=== PATIENT | male | born 1975 | race Caucasian/White ===

== ENCOUNTER 2019-07-10 06:00 | Outpatient (RCR) | payer MEDICAID, SELFPAY | END 2019-08-09 23:59 | disposition home or self-care (01) | LOC: WPT 06:00 | PROVIDERS: Family Provider Family Medicine; PCP Family Medicine; Visit Provider Licensed Practical Nurse | DX: M54.2 Cervicalgia (principal) ==

== ENCOUNTER → 2019-09-12 14:03 | Outpatient (BNVA) | payer MEDICAID, SELFPAY | PROVIDERS: Family Provider Family Medicine; PCP Family Medicine; Referring Provider Family Medicine; Visit Provider Specialist | DX: G56.00 Carpal tunnel syndrome, unspecified upper limb (principal) | CPT/HCPCS: 73110 ==

== ENCOUNTER 2019-09-17 07:33 | Day surgery (SDC) | payer MEDICAID, SELFPAY ==
[2019-09-16 14:04] VITALS: BMI 24.7
[2019-09-17 07:47] VITALS: BP 152/98; PULSE 76; RESP 18; TEMP 36.7; O2SAT 100
--- NOTE | 2019-09-17 08:11 | W.PM.OPSUD ---
Surgery/Procedure H&P Update DATE OF PROCEDURE: September 17, 2019 DATE H&P PERFORMED: 09/12/19 H&P UPDATE INFORMATION: I have reviewed H&P completed within last 30 days, No changes to prior documentation and H&P is in [facility] EMR on date indicated PREOP DIAGNOSIS: Right carpal tunnel syndrome PLANNED PROCEDURE: Operation Date: 09/17/19 09:10 Proposed Procedures p Carpal Tunnel Release [id number] G56.01(Right) - Evelyn Felix MD
--- NOTE | 2019-09-17 08:16 | P.ANESASSM_ITS ---
Pre-Anesthetic Assessment Pre-Anesthetic Assessment: Height/Weight: Height 1.91 m Weight 89.811 kg Temp Pulse Resp BP Pulse Ox 98.1 F 76 18 152/98 100 09/17/19 07:47 09/17/19 07:47 09/17/19 07:47 09/17/19 07:47 09/17/19 07:47 Preop Diagnosis: Right carpal tunnel syndrome Proposed Procedure: Operation Date: 09/17/19 09:10 Proposed Procedures p Carpal Tunnel Release [id number] G56.01(Right) - Evelyn Felix MD Familial anesthetic complications: None Was Beta Markell taken within 24 mira rs: N/A Last intake: Intake No meds this morning (stopped suboxone on monday) Last Liquid Date 09/16/19 Last Liquid Time 22:30 Last Solid Date 09/16/19 Last Solid Time 22:30 Social: Social History: Tobacco and No alcohol Packs per day: 1 ppd Exam: Pre-Anes Outpt Exam: alert, oriented x 3, clear to auscultation bilaterally and regular rate & rhythm Airway: Cervical ROM: WNL MP: 3 Dentition: Partials Pulmonary: Pulmonary: None reported CV/HEM: CV/HEM: None reported : : None reported Hepatic: Hepatic: None reported GI: GI: None reported Metabolic: Metabolic: None reported Musc/skel: Musc/skel: Lower Back Pain Comments: On suboxone to get off pain medicine for back pain (slipped cervical discs as well) Neuropsych: Neuropsych: Neuropathy Anesthetic Plan: ASA status: 2 Anesthesia: MAC Risk of > 500 ml blood loss (7ml/kg in children): No PFSH Anesthesia PFSH: Social History (Updated 09/16/19 @ 12:21 by Merry Amezquita LPN) Smoking and tobacco status: current every day smoker Alcohol intake: current Lives independently: Yes Household members: spouse Marital status: Current occupational status: disabled History of recent travel: No Data Anesthesia Cardiac Studies: No Data to Display
[2019-09-17] MEDS: sodium chloride 0.9% 1,000 ML 30 ML IV (08:30)
[2019-09-17 08:37] VITALS: BP 142/81; PULSE 67; RESP 18; TEMP 36.6; O2SAT 100
[2019-09-17 09:59] VITALS: BP 140/86; PULSE 68; RESP 16; TEMP 36.4; O2SAT 100
--- NOTE | 2019-09-17 10:03 | P.OP_ITS ---
Operative Report Date of procedure: September 17, 2019 Pre-op Diagnosis: Right carpal tunnel syndrome Post-op diagnosis: same Post-op Findings: COmpression across the median nerve Procedure Done: Right carpal tunnel release Specimens removed/disposition: None Pathology: none sent Surgeon: Evelyn Felix Zigzag Elastic Attacher: None Anesthesia: Other ([place] Block with MAC) Estimated blood loss (mL): 3 Tourniquet time (min): 38 IV fluids (mL): 300 Urine output (mL): 0 Complications: None Condition: stable Disposition: same day Brief History: This 44-year-old gentleman presented with complaints of numbness in the hand consistent with carpal tunnel syndrome. After discussion, he wished to proceed with right carpal tunnel release. Risks and complications were discussed with him. Consents were signed preoperatively. Procedure: The patient was brought to the operating theater. The patient had a Artemio block with MAC. The tourniquet was elevated to 280 mmHg for a total tourniquet time of 38 minutes. The patient was also given Ancef 2 g preoperatively. The arm was then prepped and draped with DuraPrep in usual fashion with the arm draped free. A surgical pause was performed. At the time, the surgical pause, we confirmed the site and side of surgery. We also confirmed the patient's identity, appropriate and timely administration of preoperative antibiotics and preoperative surgical markings. An incision was then made along the thenar crease. The incision crossed the wrist joint in a curvilinear fashion. Dissection continued through skin and soft tissues using a scalpel. The palmaris longus was identified along with the transverse carpal ligament. Each of these was released carefully to avoid injury to the median nerve. We were able to dissect gently into the carpal canal which was noted to be quite tight with significant compression across the median nerve. The nerve was visualized and was a slight hourglass shape. The canal was subsequently palpated to assure there was no bony encroachment or further soft tissue impingement upon the canal. There was a quite thickened fibrous tissue within the canal, and this was opened longitudinally as well. The canal was then palpated distally and proximally to assure that my small finger was passed easily without impingement. Finding this to be so, attention was directed to closure. The wound was irrigated with ropivacaine plain. It was then closed with 3-0 nylon in an interrupted mattress fashion. Sterile dressing was then placed consisting of Xeroform gauze, fluffed fluffs, sterile soft roll, a volar splint, and an Segun wrap. The tourniquet was released after 38 minutes. There were no complications. There were no specimens. The procedure was well tolerated. Plan is the patient will be discharged home.
== END 2019-09-17 10:33 | disposition home or self-care (01) ==
PROVIDERS: Family Provider Family Medicine; PCP Family Medicine; Visit Provider Specialist
PROC: (CPT 64721; principal; 2019-09-17 09:10)
DX: G56.01 Carpal tunnel syndrome, right upper limb (principal); F17.210 Nicotine dependence, cigarettes, uncomplicated
CPT/HCPCS: 64721; 12345; J0690; J2001; J2704; J3010; J3490; J7030

== ENCOUNTER → 2019-10-22 13:22 | Outpatient (BNVA) | payer MEDICAID, SELFPAY | PROVIDERS: Family Provider Family Medicine; PCP Family Medicine; Referring Provider Specialist; Visit Provider Anesthesiology Pain Medicine | DX: M54.12 Radiculopathy, cervical region (principal); M47.812 Spondylosis without myelopathy or radiculopathy, cervical region; F17.210 Nicotine dependence, cigarettes, uncomplicated; Z79.891 Long term (current) use of opiate analgesic | CPT/HCPCS: 99204; 99205 ==

== ENCOUNTER → 2020-02-13 14:52 | Outpatient (BNVA) | payer MEDICAID, SELFPAY | PROVIDERS: Family Provider Family Medicine; PCP Family Medicine; Visit Provider Internal Medicine Rheumatology | DX: M05.79 Rheumatoid arthritis with rheumatoid factor of multiple sites without organ or systems involvement (principal); Z79.899 Other long term (current) drug therapy; Z11.59 Encounter for screening for other viral diseases; Z11.1 Encounter for screening for respiratory tuberculosis; R76.8 Other specified abnormal immunological findings in serum; G56.03 Carpal tunnel syndrome, bilateral upper limbs | CPT/HCPCS: 36415; 80076; 82306; 82565; 84550; 85025; 85651; 86140; 86480; 86704; 86803; 87340; 99204 ==

== ENCOUNTER → 2020-02-18 11:50 | Outpatient (BNVA) | payer MEDICAID, SELFPAY | PROVIDERS: Family Provider Family Medicine; PCP Family Medicine; Visit Provider Internal Medicine | DX: Z20.828 Contact with and (suspected) exposure to other viral communicable diseases (principal); G56.02 Carpal tunnel syndrome, left upper limb | CPT/HCPCS: 87635 ==

== ENCOUNTER 2020-02-21 07:45 | Day surgery (SDC) | payer MEDICAID, SELFPAY ==
[2020-02-20 15:13] VITALS: BMI 23.7
[2020-02-21 07:55] VITALS: BP 136/90; PULSE 60; RESP 18; TEMP 36.6; O2SAT 100
--- NOTE | 2020-02-21 08:06 | P.ANESASSM_ITS ---
Pre-Anesthetic Assessment Pre-Anesthetic Assessment: Height/Weight: Height 1.91 m Weight 86.183 kg Temp Pulse Resp BP Pulse Ox 97.8 F 60 18 136/90 100 02/21/20 07:55 02/21/20 07:55 02/21/20 07:55 02/21/20 07:55 02/21/20 07:55 Preop Diagnosis: Left carpal tunnel syndrome Proposed Procedure: Operation Date: 02/21/20 09:30 Proposed Procedures p Carpal Tunnel Release [id number] G56.02(Left) - Evelyn Felix MD Familial anesthetic complications: None Was Beta Markell taken within 24 hours: N/A Last intake: Intake Last Liquid Date 02/20/20 Last Liquid Time 20:00 Last Solid Date 02/20/20 Last Solid Time 20:00 Social: Social History: Tobacco Exam: Pre-Anes Outpt Exam: alert, oriented x 3, clear to auscultation bilaterally and regular rate & rhythm Airway: Cervical ROM: WNL MP: 3 Dentition: Partials and Other (missing) Pulmonary: Pulmonary: None reported CV/HEM: CV/HEM: None reported GI: GI: GERD Musc/skel: Musc/skel: Lower Back Pain Neuropsych: Neuropsych: None reported Anesthetic Plan: ASA status: 1 Anesthesia: MAC and Regional (specify below) Risk of > 500 ml blood loss (7ml/kg in children): No PFSH Anesthesia 2 PFSH: Medical History (Updated 02/13/20 @ 17:55 by Javier Peterson MD) Cervical disc disorder with myelopathy of mid-cervical region Chronic neck pain High risk medication use 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 Felix). History of facial surgery History of lumbar fusion Hx of appendectomy Hx of cholecystectomy Family History (Updated 02/13/20 @ 16:00 by Flores Mckinney LPN) Other Cancer Rheumatoid arthritis Denies family history of Diabetes Lupus Chronic kidney disease (CKD) Hypertension Social History Smoking and tobacco status: current every day smoker Alcohol intake: current Lives independently: Yes Household members: spouse Marital status: Current occupational status: disabled History of recent travel: No Data Anesthesia Cardiac Studies: No Data to Display
[2020-02-21] MEDS: sodium chloride 0.9% 1,000 ML 30 ML IV (08:35)
--- NOTE | 2020-02-21 09:08 | P.HPUD_ITS ---
Surgery/Procedure H&P Update DATE OF PROCEDURE: February 21, 2020 DATE H&P PERFORMED: 02/18/20 H&P UPDATE INFORMATION: I have reviewed H&P completed within last 30 days, I have examined patient prior to procedure, No changes to prior documentation and H&P is in [facility] [place] EMR on date indicated PREOP DIAGNOSIS: Left carpal tunnel syndrome PLANNED PROCEDURE: Operation Date: 02/21/20 09:30 Proposed Procedures p Carpal Tunnel Release [id number] G56.02(Left) - Evelyn Felix MD Related Problem List Diagnoses (1) Carpal tunnel syndrome, left:
[2020-02-21 10:04] VITALS: BP 130/92; PULSE 58; RESP 18; TEMP 36.6; O2SAT 100
--- NOTE | 2020-02-21 10:25 | P.OP_ITS ---
Operative Report Date of procedure: February 21, 2020 Pre-op Diagnosis: Left carpal tunnel syndrome Post-op diagnosis: same Procedure Done: Left carpal tunnel release Pathology: none sent Surgeon: Evelyn Felix Dining Room Attendant Cafeteria: None Anesthesia: MAC (With [place] block) Estimated blood loss (mL): 5 Tourniquet time (min): 31 IV fluids (mL): 500 Urine output (mL): 0 Urine output: No Meeks Complications: None Findings: Significant compression across the median nerve Condition: stable Disposition: same day Brief History: This 44-year-old gentleman presented with complaints consistent with carpal tunnel syndrome. He has previously undergone right carpal tunnel release successfully. He wished to proceed with operative intervention. Risks and complications were again discussed with him. Consents were signed preoperatively. Procedure: The patient was brought to the operating theater. The patient had a [place] block with MAC. The tourniquet was elevated to 250 mmHg for a total tourniquet time of 31 minutes. The patient was also given Ancef 2 g preoperatively. The arm was then prepped and draped with DuraPrep in usual fashion with the arm draped free. A surgical pause was performed. At the time, the surgical pause, we confirmed the site and side of surgery. We also confirmed the patient's identity, appropriate and timely administration of preoperative antibiotics and preoperative surgical markings. An incision was then made along the thenar crease. The incision crossed the wrist joint in a curvilinear fashion. Dissection continued through skin and soft tissues using a scalpel. The palmaris longus was identified along with the transverse carpal ligament. Each of these was released carefully to avoid injury to the median nerve. We were able to dissect gently into the carpal canal which was noted to be quite tight with significant compression across the median nerve. The nerve was visualized and was an hourglass shape. The canal was subsequently palpated to assure there was no bony encroachment upon the canal. There was a quite thickened fibrous tissue within the canal, and this was opened longitudinally as well. The canal was then palpated distally and proximally to assure that my small finger was passed easily without impingement. Finding this to be so, attention was directed to closure. The wound was irrigated with ropivacaine plain. It was then closed with 3-0 nylon in an interrupted mattress fashion. Sterile dressing was then placed consisting of Xeroform gauze, fluffed fluffs, sterile soft roll, a volar splint, and an Segun wrap. The tourniquet was released after 31 minutes. There were no complications. There were no specimens. The procedure was well tolerated. Plan is the patient will be discharged home. Associated Problem List Diagnoses (1) Carpal tunnel syndrome, left:
[2020-02-21 10:32] VITALS: BP 122/97; PULSE 55; RESP 18; O2SAT 97
--- NOTE | 2020-02-21 13:49 | ANE.PACU2 ---
Inpatient post-anesthesia follow up: Airway intact: Yes Vital signs: Temperature 97.8 F Pulse Rate 55 Respiratory Rate 18 Blood Pressure 122/97 Pulse Oximetry 97 Oxygen Delivery Me thod Room Air Oxygen Flow Rate Fraction of Inspir ed Oxygen Hydration adequate: Yes Nausea and vomiting: No Pain level: 1 Mental status: Baseline
== END 2020-02-21 10:40 | disposition home or self-care (01) ==
PROVIDERS: PCP Family Medicine; Visit Provider Specialist
PROC: (CPT 64721; principal; 2020-02-21 09:30)
DX: G56.02 Carpal tunnel syndrome, left upper limb (principal); K21.9 Gastro-esophageal reflux disease without esophagitis; M05.79 Rheumatoid arthritis with rheumatoid factor of multiple sites without organ or systems involvement; Z79.891 Long term (current) use of opiate analgesic; F17.210 Nicotine dependence, cigarettes, uncomplicated
CPT/HCPCS: 64721; 12345; J0131; J0690; J2704; J3490; J7030

== ENCOUNTER 2020-03-25 13:29 | Outpatient (CLI) | payer MEDICAID, SELFPAY ==
--- NOTE | 2020-03-25 13:32 | XR_ITS ---
WS: [id number] FOOT LEFT TECHNIQUE: 3 views of the left foot CLINICAL INFORMATION: inflammatory arthritis COMPARISON: None. FINDINGS: No evidence of acute fracture or dislocation. Normal tarsal metatarsal alignment. Normal calcaneus. N ormal visualized talar dome. No acute findings. Plantar calcaneal spurring. Achilles enthesophyte. XR/XR foot LT min 3V* [id number] IMPRESSION: Normal left foot.
--- NOTE | 2020-03-25 13:32 | XR_ITS ---
WS: [id number] HAND LEFT TECHNIQUE: 3 views of the left hand CLINICAL INFORMATION: inflammatory arthritis COMPARISON: None. FINDINGS: Normal metacarpals. Normal MCP joint. Metacarpal heads are normal in appearance. Normal PIP and DIP j oints. No evidence of acute fracture or dislocation. Radiocarpal joint: Normal. Carpal bones: Normal. XR/XR hand LT min 3V* [id number] IMPRESSION: Normal left hand.
--- NOTE | 2020-03-25 13:32 | XR_ITS ---
WS: [id number] HAND RIGHT TECHNIQUE: 3 views of the right hand CLINICAL INFORMATION: inflammatory arthritis COMPARISON: None. FINDINGS: Normal metacarpals. Normal MCP joint. Metacarpal heads are normal in appearance. Normal PIP and DIP j oints. No evidence of acute fracture or dislocation. Radiocarpal joint: Normal. Carpal bones: Normal. XR/XR hand RT min 3V* [id number] IMPRESSION: Normal right hand.
--- NOTE | 2020-03-25 13:32 | XR_ITS ---
WS: [id number] PROCEDURE: XR chest 2V* [id number] CLINICAL INFORMATION: inflammatory arthritis COMPARISON: 3 FINDINGS: Heart: Normal cardiac silhouette. Lungs: Lungs are clear. No consolidation or pleural fluid. Bones: Normal visualized bony structures. XR/XR chest 2V* [id number] IMPRESSION: Normal chest
--- NOTE | 2020-03-25 13:32 | XR_ITS ---
WS: [id number] FOOT RIGHT TECHNIQUE: 3 views of the right foot CLINICAL INFORMATION: inflammatory arthritis COMPARISON: None. FINDINGS: No evidence of acute fracture or dislocation. Normal tarsal metatarsal alignment. Normal calcaneus. N ormal visualized talar dome. Tiny plantar calcaneal spur. Small Achilles enthesophyte. XR/XR foot RT min 3V* [id number] IMPRESSION: Normal right foot.
== END 2020-03-25 13:30 | disposition home or self-care (01) ==
LOC: RADWPI 13:32
PROVIDERS: PCP Family Medicine; Visit Provider Internal Medicine Rheumatology
DX: M19.90 Unspecified osteoarthritis, unspecified site (principal); M05.79 Rheumatoid arthritis with rheumatoid factor of multiple sites without organ or systems involvement; Z79.899 Other long term (current) drug therapy; R76.8 Other specified abnormal immunological findings in serum; G56.03 Carpal tunnel syndrome, bilateral upper limbs; F17.210 Nicotine dependence, cigarettes, uncomplicated; Z79.52 Long term (current) use of systemic steroids
CPT/HCPCS: 71046; 73130; 73630; 99214

== ENCOUNTER → 2020-07-23 13:56 | Outpatient (BNVA) | payer MEDICAID, SELFPAY | PROVIDERS: Family Provider Family Medicine; PCP Family Medicine; Visit Provider Internal Medicine Rheumatology | DX: M05.79 Rheumatoid arthritis with rheumatoid factor of multiple sites without organ or systems involvement (principal); Z79.899 Other long term (current) drug therapy; Z79.52 Long term (current) use of systemic steroids; R76.8 Other specified abnormal immunological findings in serum; M47.812 Spondylosis without myelopathy or radiculopathy, cervical region; G56.03 Carpal tunnel syndrome, bilateral upper limbs; Z98.890 Other specified postprocedural states; F17.210 Nicotine dependence, cigarettes, uncomplicated | CPT/HCPCS: 99214 ==

== ENCOUNTER → 2020-10-27 14:00 | Outpatient (BNVA) | payer BC, MEDICAID, SELFPAY | PROVIDERS: Family Provider Family Medicine; PCP Family Medicine; Visit Provider Internal Medicine Rheumatology | DX: M05.79 Rheumatoid arthritis with rheumatoid factor of multiple sites without organ or systems involvement (principal); R76.8 Other specified abnormal immunological findings in serum; Z79.899 Other long term (current) drug therapy; F17.210 Nicotine dependence, cigarettes, uncomplicated | CPT/HCPCS: 99214 ==

== ENCOUNTER → 2021-03-02 13:19 | Outpatient (BNVA) | payer BC, MEDICAID, SELFPAY | PROVIDERS: Family Provider Family Medicine; PCP Family Medicine; Visit Provider Internal Medicine Rheumatology | DX: M05.79 Rheumatoid arthritis with rheumatoid factor of multiple sites without organ or systems involvement (principal); Z79.899 Other long term (current) drug therapy; R76.8 Other specified abnormal immunological findings in serum; G56.03 Carpal tunnel syndrome, bilateral upper limbs; Z71.89 Other specified counseling; F17.200 Nicotine dependence, unspecified, uncomplicated | CPT/HCPCS: 36415; 80076; 82565; 85025; 86140; 99214 ==

== ENCOUNTER → 2021-03-04 10:05 | Outpatient (BNVA) | payer BC, MEDICAID, SELFPAY | PROVIDERS: Family Provider Family Medicine; PCP Family Medicine; Referring Provider Nurse Practitioner Family; Visit Provider Orthopaedic Surgery | DX: M54.12 Radiculopathy, cervical region (principal); M47.812 Spondylosis without myelopathy or radiculopathy, cervical region; M50.020 Cervical disc disorder with myelopathy, mid-cervical region, unspecified level; M48.02 Spinal stenosis, cervical region | CPT/HCPCS: 72050 ==

== ENCOUNTER → 2021-03-08 09:50 | Outpatient (BNVA) | payer BC, MEDICAID, SELFPAY | PROVIDERS: Family Provider Family Medicine; PCP Nurse Practitioner Family; Referring Provider Orthopaedic Surgery; Visit Provider Anesthesiology Pain Medicine | DX: G89.29 Other chronic pain (principal); M54.12 Radiculopathy, cervical region; M47.812 Spondylosis without myelopathy or radiculopathy, cervical region; M05.79 Rheumatoid arthritis with rheumatoid factor of multiple sites without organ or systems involvement; F17.210 Nicotine dependence, cigarettes, uncomplicated; Z79.899 Other long term (current) drug therapy | CPT/HCPCS: 99204 ==

== ENCOUNTER 2021-03-24 10:28 | Outpatient (CLI) | payer BC, MEDICAID, SELFPAY ==
--- NOTE | 2021-03-24 11:00 | MR_ITS ---
WS: [id number] MRI CERVICAL SPINE NONCONTRAST HISTORY: M48.02 - Spinal stenosis, cervical region COMPARISON: 02/27/2019 Technique: Multiplanar, multisequence noncontrast imaging of the cervical spine. Straightening of the normal cervical lordosis. No fracture or marrow edema. Moderate degenerative disc disease at the C5-6 level. Moderate osteophytic ridging around C5 and C6. Craniocervical junction, C1 and C2 relationship, odontoid process and soft tissues are normal. C2-C3: Normal. C3-C4: Mild osteophytic ridging with slightly greater extension to the RIGHT. Very mild narrowing of the RIGHT foramen. C4-C5: Small central disc protrusion and bilateral foraminal osteophytes. Mild facet joint arthritis. Mild RIGHT foraminal narrowing. C5-C6: Diffuse osteophytic ridging and annular disc bulging. Shallow LEFT paracentral disc osteophyte causing mild contact on the ventral thecal sac. Mild central and LEFT foraminal stenosis. Slightly g reater stenosis involving the RIGHT foramen. C6-C7: Normal. C7-T1: Small osteophyte encroaches into the posterior lateral RIGHT thecal sac. Paraspinal soft tissue are normal. MR/MR cervical spin wo con* [id number] IMPRESSION: 1. Moderate degenerative disc disease and osteophytosis at C5-6. 2. No high-grade central stenosis. 3. Mild central and LEFT foraminal stenosis with mild to moderate RIGHT forami nal stenosis at C5-6. 4. Very mild RIGHT foraminal narrowing at C3-4 and C4-5.
== END 2021-03-24 10:29 | disposition home or self-care (01) ==
LOC: RADSHAW 10:30
PROVIDERS: PCP Nurse Practitioner Family; Visit Provider Orthopaedic Surgery
DX: M48.02 Spinal stenosis, cervical region (principal); M50.322 Other cervical disc degeneration at C5-C6 level; M25.78 Osteophyte, vertebrae
CPT/HCPCS: 72141

== ENCOUNTER → 2021-05-04 09:33 | Outpatient (BNVA) | payer BC, MEDICAID, SELFPAY | PROVIDERS: PCP Nurse Practitioner Family; Referring Provider Orthopaedic Surgery; Visit Provider Anesthesiology Pain Medicine | DX: G89.29 Other chronic pain (principal); M54.12 Radiculopathy, cervical region; M47.812 Spondylosis without myelopathy or radiculopathy, cervical region; M79.601 Pain in right arm; M79.602 Pain in left arm; M05.79 Rheumatoid arthritis with rheumatoid factor of multiple sites without organ or systems involvement; Z79.899 Other long term (current) drug therapy | CPT/HCPCS: 99214 ==

== ENCOUNTER → 2021-05-06 12:49 | Outpatient (BNVA) | payer BC, MEDICAID, SELFPAY | PROVIDERS: PCP Nurse Practitioner Family; Visit Provider Internal Medicine Rheumatology | DX: M05.79 Rheumatoid arthritis with rheumatoid factor of multiple sites without organ or systems involvement (principal); Z79.899 Other long term (current) drug therapy | CPT/HCPCS: 36415; 80076; 82565; 85025; 86140 ==

== ENCOUNTER → 2021-05-25 12:46 | Outpatient (BNVA) | payer BC, MEDICAID, SELFPAY | PROVIDERS: PCP Nurse Practitioner Family; Visit Provider Anesthesiology Pain Medicine | DX: G89.29 Other chronic pain (principal); M54.12 Radiculopathy, cervical region; M50.020 Cervical disc disorder with myelopathy, mid-cervical region, unspecified level | CPT/HCPCS: 62321; J1100 ==

== ENCOUNTER → 2021-06-24 11:19 | Outpatient (BNVA) | payer BC, MEDICAID, SELFPAY | PROVIDERS: PCP Nurse Practitioner Family; Visit Provider Internal Medicine Rheumatology | DX: M05.79 Rheumatoid arthritis with rheumatoid factor of multiple sites without organ or systems involvement (principal); R76.8 Other specified abnormal immunological findings in serum; Z79.899 Other long term (current) drug therapy; Z71.89 Other specified counseling | CPT/HCPCS: 99214 ==

== ENCOUNTER → 2021-09-08 12:43 | Outpatient (BNVA) | payer BC, MEDICAID, SELFPAY | PROVIDERS: PCP Nurse Practitioner Family; Visit Provider Anesthesiology Pain Medicine | DX: G89.29 Other chronic pain (principal); M54.12 Radiculopathy, cervical region; M47.812 Spondylosis without myelopathy or radiculopathy, cervical region; M79.601 Pain in right arm; M79.602 Pain in left arm; M05.79 Rheumatoid arthritis with rheumatoid factor of multiple sites without organ or systems involvement; F17.200 Nicotine dependence, unspecified, uncomplicated; Z79.899 Other long term (current) drug therapy | CPT/HCPCS: 99214 ==

== ENCOUNTER → 2021-10-18 10:26 | Outpatient (BNVA) | payer BC, MEDICAID, SELFPAY | PROVIDERS: PCP Nurse Practitioner Family; Visit Provider Internal Medicine Rheumatology | DX: M05.79 Rheumatoid arthritis with rheumatoid factor of multiple sites without organ or systems involvement (principal); Z79.899 Other long term (current) drug therapy; R76.8 Other specified abnormal immunological findings in serum; Z71.89 Other specified counseling | CPT/HCPCS: 80076; 82565; 85025; 86140; 99214 ==

== ENCOUNTER → 2021-12-16 08:46 | Outpatient (BNVA) | payer BC, MEDICAID, SELFPAY | PROVIDERS: PCP Nurse Practitioner Family; Visit Provider Orthopaedic Surgery | DX: M47.22 Other spondylosis with radiculopathy, cervical region (principal); M47.9 Spondylosis, unspecified | CPT/HCPCS: 72040; 99214 ==

== ENCOUNTER 2021-12-16 15:18 | Outpatient (CLI) | payer BC, MEDICAID, SELFPAY | END 2021-12-16 15:19 | disposition home or self-care (01) | LOC: SPT 15:19 | PROVIDERS: PCP Nurse Practitioner Family; Visit Provider Orthopaedic Surgery | DX: Z46.89 Encounter for fitting and adjustment of other specified devices (principal); M54.2 Cervicalgia | CPT/HCPCS: 97760; L0174 ==

== ENCOUNTER 2021-12-30 07:37 | Outpatient (CLI) | payer BC, MEDICAID, SELFPAY ==
--- NOTE | 2021-12-30 07:48 | MR_ITS ---
WS: [id number] MRI RIGHT KNEE HISTORY: HX RA, KNEE LOCKS UP/R KNEE PAIN COMPARISON: None available. Anterior cruciate ligament: Intact. Posterior cruciate ligament: Intact. Medial collateral ligament: Ligament is being displaced from the femoral condyle by lobulated cystic mass measuring 3.1 x 0.8 cm. This mass is inseparable from the ligament. Posterior lateral corner structures: Intact. Medial menisci: Horizontal tear in the posterior horn extends to the inferior articular surface. Ther e is also additional smudging and intrasubstance degeneration extending towards the meniscal root. Mo derate fraying of the surfaces of the meniscus. Anterior horn is negative. Lateral meniscus: Intact. Normal signal, size and shape. Extensor mechanism: Distal quadriceps tendon and patellar tendons are intact. Fluid and soft tissue: Small suprapatellar joint effusion. There is a small amount of edema surroundi ng the femoral condyles. Tiny Musa's cyst. Osseous and articular structures: Patellofemoral compartment: Superficial cartilage defect in the lateral facet. No marrow edema. Valencia lar retinaculum are intact. Medial compartment: Moderate narrowing medial compartment. There is near bone upon bone with loss of cartilage with the cortical surfaces being slightly irregular. No large erosions are identified. Lateral compartment: Minimal narrowing of the lateral compartment. There is mild thinning and fissuri ng involving the cartilage along the weightbearing surface of the tibial plateau and femoral condyle. Very tiny subchondral cyst along the weightbearing surface of the femoral condyle. MR/MR knee RT wo con* [id number] IMPRESSION: 1. Horizontal tear posterior horn medial meniscus contacts the inferior articu lar surface. 2. Cystic mass measures 3.1 x 0.8 cm adjacent to the medial femoral condyle di splacing the MCL from the bone. This is probably a ganglion. Potentially could be a meniscal cyst which is extruded superiorly as there is a tear in the media l meniscus. 3. Moderate osteoarthritic changes in the medial compartment with near complet e loss of cartilage. 4. Mild chondromalacia involving the lateral compartment on the weightbearing surfaces.
== END 2021-12-30 07:38 | disposition home or self-care (01) ==
LOC: RAD 07:38
PROVIDERS: PCP Nurse Practitioner Family; Visit Provider Nurse Practitioner Family
DX: M25.861 Other specified joint disorders, right knee (principal); M22.41 Chondromalacia patellae, right knee; M25.561 Pain in right knee
CPT/HCPCS: 73721

== ENCOUNTER → 2022-01-12 08:36 | Outpatient (BNVA) | payer BC, MEDICAID, SELFPAY | PROVIDERS: PCP Nurse Practitioner Family; Referring Provider Nurse Practitioner Family; Visit Provider Nurse Practitioner Family | DX: S83.249A Other tear of medial meniscus, current injury, unspecified knee, initial encounter (principal); X50.0XXA Overexertion from strenuous movement or load, initial encounter | CPT/HCPCS: 99214 ==

== ENCOUNTER 2022-01-14 11:07 | Day surgery (SDC) | payer BC, MEDICAID, SELFPAY ==
[2022-01-12 09:57] VITALS: BMI 27.5
--- NOTE | 2022-01-12 10:25 | P.ANESASSM_ITS ---
Pre-Anesthetic Assessment Height/Weight: Height 1.91 m Weight 99.79 kg Preop Diagnosis: Left carpal tunnel syndrome Operation Date: 01/14/22 07:00 Proposed Procedures p Anterior Cervical Discectomy & Fusion C5/6 [id number]/M47.22(Not Applicable) - Jamar Barajas DO Familial anesthetic complications: None Was Beta Markell taken within 24 hours: N/A Was Clonidine taken within 24 hours: N/A Social Tobacco and No alcohol Exam alert, oriented x 3 and regular rate & rhythm Airway Submandibular: within normal limits Cervical ROM: within normal limits Mallampati: Class II Dentition: false GI Gastroesophageal Reflux Disease Metabolic chronic [place] [facility] Rheumatoid Arthritis Neuropsych Neuropathy Anesthetic Plan ASA status: 3 Anesthesia: General Medications/Allergies Home Medications Medication Instructions Recorded Confirmed Last Taken Type buprenorphine 8 mg-naloxone 2 mg 8 film SUBLINGUAL BID 09/16/19 01/12/22 01/11/22 History sublingual film (Suboxone) naloxone 4 mg/actuation nasal 4 mg INTRANASAL DIRECTED 09/16/19 01/12/22 Unknown History spray (Narcan) bupropion HCl 150 mg 24 hr tablet, 150 mg PO QAM 10/27/20 01/12/22 Unknown History extended release (Wellbutrin XL) meloxicam 15 mg tablet 15 mg PO DAILY #30 tab 03/08/21 01/12/22 Unknown Rx etanercept 50 mg/mL (1 mL) 50 mg SUBCUT .Q7days #4 ml 10/18/21 01/12/22 Unknown Rx subcutaneous pen injector (Enbrel SureClick) folic acid 1 mg tablet 1 mg PO DAILY #90 tab 10/18/21 01/12/22 Unknown Rx pantoprazole 40 mg tablet,delayed 40 mg PO DAILY #90 tab 10/18/21 01/12/22 Unknown Rx release prednisone 5 mg tablet 5 mg PO DAILY #90 tab 10/18/21 01/12/22 Unknown Rx sulfasalazine 500 mg tablet 0.5 g PO BID #60 tab 10/18/21 01/12/22 Unknown Rx methotrexate sodium 2.5 mg tablet 7.5 mg PO .week #15 tab 11/22/21 01/12/22 Unknown Rx [place] J #1 ea 12/16/21 01/12/22 Unknown Rx Allergies Allergy/AdvReac Type Severity Reaction Status Date / Time celecoxib [From Celebrex] Allergy Mild felt selwyn Verified 01/12/22 09:04 all over [facility] Anesthesia Medical History Cervical disc disorder with myelopathy of mid-cervical region Chronic neck pain High risk medication use 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 Felix). History of facial surgery History of lumbar fusion Hx of appendectomy Hx of cholecystectomy Family History Other Cancer Rheumatoid arthritis Denies family history of Diabetes Lupus Chronic kidney disease (CKD) Hypertension Social History Smoking and tobacco status: never smoked Alcohol intake: current Lives independently: Yes Household members: spouse Marital status: Current occupational status: disabled History of recent travel: No Data Anesthesia Cardiac Studies: No Data to Display
[2022-01-14] VITALS (18 sets, daily range): BP systolic 113–146; BP diastolic 60–95; PULSE 63–88; RESP 12–16; TEMP 36.2–36.8; O2SAT 95–99
--- NOTE | 2022-01-14 | SCC_ITS ---
Procedure done: 1. Anterior diskectomy C5/6 2. Insertion of cage C5/6 3. Instrumentation with anterior plate from C5-C6 4. Use of allograft 12.3 seconds of fluoroscopic guidance, for a cumulative dose of 0.28 mGy, was provided to Dr. Barajas by the radiology department. C-arm images of the cervical spine were saved for the patient's permanent record. MOR[facility] STAN[facility] CHILDREN'S HOSPITALGregorio
--- NOTE | 2022-01-14 | XR_ITS ---
WS: [id number] Cervical spine, C-arm fluoroscopy, 01/14/2022 Clinical Data: OR PICS/ ACDF C5-6 Comparison: None. Findings: Dr. Barajas performed an anterior cervical disc fusion at C5-C6 with an artificial disc at C5 -C6. XR/XR cervical spine 3V* [id number] Impression: Anterior cervical disc fusion, C5-C6.
[2022-01-14] MEDS: sodium chloride 0.9% 1,000 ML 30 ML IV (11:28)
--- NOTE | 2022-01-14 11:33 | W.PM.OPSUD ---
Surgery/Procedure H&P Update DATE OF PROCEDURE: January 14, 2022 DATE H&P PERFORMED: 12/16/21 H&P UPDATE INFORMATION: I have reviewed H&P completed within last 30 days, I have examined patient prior to procedure and No changes to prior documentation PREOP DIAGNOSIS: Cervical Radiculopathy PLANNED PROCEDURE: Operation Date: 01/14/22 12:30 Proposed Procedures p Anterior Cervical Discectomy & Fusion C5/6 [id number]/M47.22(Not Applicable) - Jamar Barajas DO
[2022-01-14] MEDS: ceFAZolin 2,000 MG in sodium chloride 0.9% (plus) 50 ML 100 MG IV (12:12)
--- NOTE | 2022-01-14 12:16 | P.ANESUD_ITS ---
Pre-Anesthetic Update Pre-Anesthetic Assessment: Date of Surgery/Procedure: 01/14/22 Preop Christy gnosis: Cervical Radiculopathy Proposed Procedure: Operation Date: 01/14/22 12:30 Proposed Procedures p Anterior Cervical Discectomy & Fusion C5/6 [id number]/M47.22(Not Applicable) - Jamar Barajas, DO Any changes to Pre-Anesthetic Assessment?: No Last Intake: Intake Last Liquid Date 01/13/22 Last Liquid Time 20:00 Last Solid Date 01/13/22 Last Solid Time 21:00 Vitals: Temperature 97.3 F L 01/14/22 11:22 Temperature Source Temporal Artery S can 01/14/22 11:22 Pulse Rate 84 01/14/22 11:22 Respiratory Rate 15 01/14/22 11:22 Blood Pressure 140/95 01/14/22 11:22 Blood Pressure Autumn n 110 01/14/22 11:22 Pulse Oximetry 97 01/14/22 11:22 Oxygen Delivery Me thod 01/14/22 11:22 Exam: Pre-Anes Outpt Exam: alert, oriented x 3, clear to auscultation bilaterally and regular rate & rhythm Cardiac Studies: No Data to Display
--- NOTE | 2022-01-14 13:44 | SUR.OPER ---
family updated of surgical status
--- NOTE | 2022-01-14 14:36 | P.OP_ITS ---
Operative Report Date of procedure: January 14, 2022 Pre-op diagnosis: Preop Diagnosis Cervical Radiculopathy Post-op diagnosis: same Procedure done: 1. Anterior diskectomy C5/6 2. Insertion of cage C5/6 3. Instrumentation with anterior plate from C5-C6 4. Use of allograft Surgeon: Jamar Barajas Estimated blood loss (mL): 5 Procedure: 1. Anterior diskectomy C5/6 2. Insertion of cage C5/6 3. Instrumentation with anterior plate from C5-C6 4. Use of allograft The patient was taken to the operating room, where he underwent general endotracheal anesthesia without complications. He was then positioned supine on the operating table, and all areas of impingement were well padded. The arms were carefully padded and tucked at his sides. A roll was placed between the shoulder blades.. An x-ray was done to determine the appropriate level for the skin incision. The entire neck was then sterilely prepped and draped in the usual fashion. Neuromonitoring was attached prior to prepping. A transverse skin incision was made and carried down to the platysma muscle. This was then split in line with its fibers. Blunt dissection was carried down medial to the carotid sheath and lateral to the trachea and esophagus until the anterior cervical spine was visualized. A needle was placed into a disc and an x-ray was done to determine its location. The longus colli muscles were then elevated bilaterally with the electrocautery unit. Self-retaining retractors were placed deep to the longus colli muscle. Attention was brought to the C5-6 level that was confirmed on x-ray. A caspar pin was placed into the C 5 vertebrae and the C 6 vertebrae. The disk space was then distracted. The microscope was then brought in. A radical anterior discectomies were performed at C 5/6. This included complete removal of the a nterior annulus, nucleus, and posterior annulus. The posterior longitudinal ligament was removed as were the posterior osteophytes. Foraminotomies were then accomplished bilaterally. This was done using a high speed taniya, kerrison rongeurs and curretes Once all of this was accomplished, the curved currette was used to check for any residual compression. The central canal was wide open as were the foramen. A high-speed bur was used to remove the cartilaginous endplates above and below the interspace. Bleeding cancellous bone was exposed. The disc space were measured and appropriate size cage were placed sterilely onto the field. Allograft graft was packed into the cages. The cage was then placed and there was good juxtaposition against the bleeding decorticated surfaces and good distraction of each interspace. Attention was brought to the next interspace. The [place] pins were removed. Bone wax was used to prevent any bleeding from occurring at the pin sites. The appropriate size anterior cervical locking plate was chosen and bent into gentle lordosis. Two screws were then placed into each of the vertebral bodies at []. There was excellent purchase. A final x-ray was done confirming good position of the hardware and Cages. The locking screws were then applied, also with excellent purchase. Following a final copious irrigation, there was good hemostasis and no dural leaks. The carotid pulse was strong. The wounds were then closed in layers using 2-0 Vicryl suture for the platysma muscle, 2-0 Vicryl suture for the subcutaneous tissue, and 4-0 monocryl suture in a subcuticular skin closure. Glue was placed followed by application of a sterile dressing. The drain was hooked to bulb suction. A soft collar was applied. The patient was then carefully returned to the supine position on his hospital bed where he was reversed and extubated and taken to the recovery room having tolerated the procedure well.
--- NOTE | 2022-01-14 14:53 | ANE.PACU2 ---
Inpatient post-anesthesia follow up: Airway intact: Yes Vital signs: Temperature 97.2 F Pulse Rate 78 Respiratory Rate 12 Blood Pressure 135/85 Pulse Oximetry 97 Oxygen Delivery Me thod Simple Mask Oxygen Flow Rate 5 Fraction of Inspir ed Oxygen Hydration adequate: Yes Nausea and vomiting: No Pain level: 2 Mental status: Baseline
[2022-01-14] MEDS: HYDROmorphone 1 mg/mL INJ 1 mL 0.5 MG IVP ×2 (14:57→15:03)
[2022-01-14] MEDS: HYDROcodone-acetaminophen 5-325 mg Tablet 1 TAB PO (16:30)
== END 2022-01-14 16:35 | disposition home or self-care (01) ==
PROVIDERS: PCP Nurse Practitioner Family; Visit Provider Orthopaedic Surgery
PROC: 0RB30ZZ Excision of Cervical Vertebral Disc, Open Approach (ICD-10-PCS; CPT 22551; principal; 2022-01-14 12:30)
DX: M54.12 Radiculopathy, cervical region (principal); K21.9 Gastro-esophageal reflux disease without esophagitis; Z79.52 Long term (current) use of systemic steroids
CPT/HCPCS: 20930; 22551; 22845; 22853; 72040; 76000; C1713; C9359; J1100; J1170; J2250; J2405; J2704; J3490; J7030

== ENCOUNTER → 2022-01-25 10:29 | Outpatient (BNVA) | payer BC, MEDICAID, SELFPAY | PROVIDERS: PCP Nurse Practitioner Family; Visit Provider Orthopaedic Surgery | DX: Z47.89 Encounter for other orthopedic aftercare (principal); Z98.890 Other specified postprocedural states; Z98.1 Arthrodesis status | CPT/HCPCS: 99024 ==

== ENCOUNTER → 2022-02-02 10:15 | Outpatient (BNVA) | payer BC, MEDICAID, SELFPAY | PROVIDERS: PCP Nurse Practitioner Family; Visit Provider Specialist | DX: M25.561 Pain in right knee (principal); S83.241A Other tear of medial meniscus, current injury, right knee, initial encounter; M23.003 Cystic meniscus, unspecified medial meniscus, right knee; M17.11 Unilateral primary osteoarthritis, right knee; X58.XXXA Exposure to other specified factors, initial encounter | CPT/HCPCS: 73560; 73565; 99214 ==

== ENCOUNTER → 2022-02-09 10:03 | Outpatient (BNVA) | payer BC, MEDICAID, SELFPAY | PROVIDERS: PCP Nurse Practitioner Family; Visit Provider Internal Medicine Rheumatology | DX: M05.79 Rheumatoid arthritis with rheumatoid factor of multiple sites without organ or systems involvement (principal); Z79.899 Other long term (current) drug therapy; Z71.89 Other specified counseling; R76.8 Other specified abnormal immunological findings in serum; Z79.52 Long term (current) use of systemic steroids; Z98.1 Arthrodesis status | CPT/HCPCS: 80076; 82565; 85025; 86140; 99214 ==

== ENCOUNTER → 2022-03-01 10:12 | Outpatient (BNVA) | payer BC, MEDICAID, SELFPAY | PROVIDERS: PCP Nurse Practitioner Family; Visit Provider Orthopaedic Surgery | DX: Z47.89 Encounter for other orthopedic aftercare (principal); Z98.1 Arthrodesis status | CPT/HCPCS: 72040; 99024; 99212 ==

== ENCOUNTER → 2022-04-12 12:47 | Outpatient (BNVA) | payer BC, MEDICAID, SELFPAY | PROVIDERS: PCP Nurse Practitioner Family; Visit Provider Orthopaedic Surgery | DX: Z47.89 Encounter for other orthopedic aftercare (principal); Z98.1 Arthrodesis status | CPT/HCPCS: 72040 ==

== ENCOUNTER → 2022-04-18 13:04 | Outpatient (BNVA) | payer BC, MEDICAID, SELFPAY | PROVIDERS: PCP Nurse Practitioner Family; Visit Provider Specialist | DX: M23.003 Cystic meniscus, unspecified medial meniscus, right knee (principal); M17.11 Unilateral primary osteoarthritis, right knee | CPT/HCPCS: 73560; 73565 ==

== ENCOUNTER 2022-05-20 10:12 | Day surgery (SDC) | payer BC, MEDICAID, SELFPAY ==
[2022-05-19 12:37] VITALS: BMI 25.9
[2022-05-20] VITALS (13 sets, daily range): BP systolic 139–178; BP diastolic 76–122; PULSE 66–78; RESP 12–22; TEMP 36.3–36.4; O2SAT 95–100
[2022-05-20] MEDS: sodium chloride 0.9% 1,000 ML 30 ML IV (10:56)
--- NOTE | 2022-05-20 11:14 | P.HP_ITS ---
Same Day Surgery H&P Indication for Procedure/HPI DATE OF PROCEDURE: May 20, 2022 CHIEF COMPLAINT/INDICATIONFOR SURGICAL PROCEDURE: Right knee medial meniscal tear with associated cyst. MRI findings also indicated mild degenerative osteoarthritic changes. PREOP DIAGNOSIS: Right knee medial meniscal tear with osteoarthritis PLANNED PROCEDURE: Operation Date: 05/20/22 12:25 Proposed Procedures p RIGHT KNEE ARHTROSCOPY WITH PARTIAL MEDIAL MENISCECTOMY AND DEBRIDEMENT. [id number]? [id number],S83.249A(Right) - Evelyn Felix MD This 46-year-old gentleman presented to my office with complaints of right knee pain. MRI demonstrated medial meniscus tear with a cyst associated with this tear. Additionally, there were moderate degenerative changes. Medications/Allergies* Home Medications Medication Instructions Recorded Confirmed Type buprenorphine 8 mg-naloxone 2 mg 8 film sublingual BID 09/16/19 05/20/22 History sublingual film (Suboxone) naloxone 4 mg/actuation nasal 4 mg intranasal DIRECTED 09/16/19 05/19/22 History spray (Narcan) bupropion HCl 150 mg 24 hr tablet, 300 mg PO QAM 10/27/20 05/20/22 History extended release (Wellbutrin XL) atenolol 50 mg tablet 50 mg PO DAILY 05/19/22 05/20/22 History Allergies/Adverse Reactions Allergy/AdvReac Type Severity Reaction Status Date / Time celecoxib [From Celebrex] Allergy Mild felt hot Verified 05/19/22 12:32 all over Current Medications: Generic Name Dose Route Start Last Admin Trade Name Freq PRN Reason Stop Dose Admin Sodium Chloride 1,000 mls @ 30 mls/hr 05/20/22 10:30 05/20/22 10:56 Sodium Chloride 0.9% IV 05/21/22 10:29 30 mls/hr .Q24H KERRY Administration Pertinent History/Comorbid Conditions* Medical History (Updated 02/02/22 @ 21:36 by Evelyn Felix MD) Cervical disc disorder with myelopathy of mid-cervical region Chronic neck pain High risk medication use 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 Felix). History of facial surgery History of lumbar fusion Hx of appendectomy Hx of cholecystectomy Family History (Updated 02/13/20 @ 16:00 by Flores Mckinney LPN) Rheumatoid arthritis Cancer Denies family history of Diabetes Lupus Chronic kidney disease (CKD) Hypertension Social History Smoking and tobacco status: current some day smoker Alcohol intake: current Lives independently: Yes Household members: spouse Marital status: Current occupational status: disabled History of recent travel: No Pertinent Exam Findings alert, oriented x 3, clear to auscultation bilaterally, regular rate & rhythm and operative site marked Patient is alert and oriented. Lungs are clear to auscultation. Heart demonstrates regular rhythm and rate with normal S1 and S2. Specifically, the right knee demonstrates intact skin. Flexion is to 90 degrees and extension lacks 5 degrees. Neurologically he is intact. Pertinent Data MRI findings are again evaluated. There is a horizontal tear in the posterior horn of the medial meniscus contacting the articular surface. There is an associated cyst. Additionally, there is mild joint space narrowing with other osteoarthritic change. 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
[2022-05-20] MEDS: acetaminophen 1,000 MG/100 ML PIGGYBACK 400 MG IV (11:35)
[2022-05-20] MEDS: ceFAZolin 2,000 MG in sodium chloride 0.9% (plus) 50 ML 100 MG IV (11:55)
[2022-05-20] MEDS: morphine 4 mg/mL SDV 1 mL 8 MG XX (12:28)
--- NOTE | 2022-05-20 13:19 | PC.NURSE ---
2ml of labetalol given at 1317, \bp 178/102
--- NOTE | 2022-05-20 13:28 | P.OP_ITS ---
Operative Report Date of procedure: May 20, 2022 Pre-op diagnosis: Right medial meniscus tear with cyst, osteoarthritis Post-op diagnosis: Right knee medial and lateral meniscal tears with osteoarthritis Procedure done: Right arthroscopic knee surgery with partial medial and lateral meniscectomies, chondroplasty's lateral tibial plateau, medial femoral condyle, and trochlear groove. Specimens removed/disposition: None Surgeon: Evelyn Felix Transportation Dispatch Manager: None Anesthesia: General (Per LMA, ASA 2) Estimated blood loss (mL): 5 Tourniquet time (min): 38 (At 250 mmHg) IV fluids (mL): 1,000 Urine output (mL): 0 (No Meeks) Complications: None Findings: Medial and lateral meniscal tears with copious synovitis and osteoarthritis primarily involving the patellofemoral joint, lateral tibial plateau, and medial femoral condyle. Condition: stable Disposition: PACU (Then to same-day surgery for discharge home) Brief History: This 46-year-old gentleman presented with complaints of right knee pain. MRI confirmed medial meniscal tear with cyst posteriorly. He also was found to have degenerative osteoarthritis based on plain films and MRI. Patient continued to have increasing pain and decreasing motion, and he wished to proceed with arthroscopic intervention. Authorization was obtained from his insurance company with some difficulty. We then proceeded to the above procedure. Preoperatively, risks and complications were discussed with the patient. Consents were signed. Questions were answered. Procedure: Patient was brought to the operating theater and after undergoing adequate general anesthesia per LMA, ASA 2, the patient's right lower extremity was prepped and draped in usual fashion utilizing DuraPrep. A tourniquet was placed high on the leg prior to prepping and draping. The tourniquet was elevated prior to commencement of the surgical procedure to 250 mmHg. Total tourniquet time was 38 minutes. Elevation followed prepping and exsanguination. Prior to commencement of the surgical procedure, a surgical pause was performed. At the time of the surgical pause, we identified the site and side of surgery. We also confirmed the patient's identity and appropriate and timely administration of preoperative antibiotics, Ancef 2 g. Preoperative surgical markings were also visualized at this time. Standard arthroscopic portals were utilized including superolateral, inferomedial, and inferolateral portals. The examination commenced in the suprapatellar pouch area where the patient was noted to have chondromalacia of the trochlear groove and undersurface of the patella to a significant degree. There was also noted to be some synovitis in this area. The arthroscope was then passed in the medial compartment where there was noted to be degenerative osteoarthritic changes primarily involving the medial femoral condyle but also the medial tibial plateau. There was copious synovitis anteriorly and evidence of meniscal tear in the anterior and posterior horns.. The arthroscope was then passed across the notch area where anterior cruciate ligament was visualized and found to be intact, but there was obstruction of the visualization secondary to the degree of synovitis which was subsequently resected. Once the synovitis was resected, the anterior cruciate was visualized and found to be intact. The scope was passed into the lateral compartment with the knee in a [id number] position. Lateral meniscus was noted to have significant evidence of degenerative tearing involving the entire meniscus particularly centrally. This was debrided with a combination of the intra- articular shaver and the heat wand. Additionally, there was noted to be significant degenerative change within the lateral tibial plateau. A chondroplasty was performed using primarily the intra-articular heat wand. Once lateral meniscus had been thus prepared it was palpated and found to be intact and not displaceable into the knee joint. Scope was then returned to the medial compartment where partial meniscectomy was accomplished using the intra- articular shaver and intra-articular heat wand. Additionally, chondroplasty was performed of the medial femoral condyle. The meniscus was palpated and found to be not displaceable into the knee joint. The arthroscope was then returned to the patellofemoral joint where a chondroplasty was performed of the trochlear groove and the undersurface of the patella. This chondroplasty involved use of the intra-articular shaver as well as the heat wand. Once the patellofemoral compartment had been addressed, the scope was passed back through the knee compartments to evaluate for other abnormalities. Finding none, attention was directed to closure. The knee was copiously irrigated and suctioned dry. Following this, each portal was closed with a simple suture followed by Dermabond and OpSite. Additionally, the knee was injected with 20 mL of half percent ropivacaine and 8 mg of morphine. Additional 10 mL of ropivacaine was placed about the portals. Lionel rile dressing was placed consisting of the OpSite followed by 4 x 4's and the Segun wrap. Patient was returned to Recovery Room in satisfactory condition where he will be discharged home to follow-up with me in the office as scheduled. There were no complications and no specimens. Related Problem List Diagnoses (1) Acute lateral meniscus tear of right knee: (2) Acute medial meniscus tear of right knee: (3) Primary osteoarthritis of right knee:
[2022-05-20] MEDS: fentaNYL 50 mcg/mL INJ 2mL IVP (13:30)
--- NOTE | 2022-05-20 13:50 | ANES.PREANE2 ---
Pre-Anesthetic Assessment Height/Weight: Height 1.91 m Weight 94.347 kg Temp Pulse Resp BP Pulse Ox O2 Del Method O2 Flow Rate 97.6 F 69 18 150/102 100 10 05/20/22 13:45 05/20/22 13:45 05/20/22 13:45 05/20/22 13:45 05/20/22 13:45 05/20/22 13:45 05/20/22 13:10 Preop Diagnosis: Right medial meniscus tear with cyst, osteoarthritis Operation Date: 05/20/22 12:25 Proposed Procedures p RIGHT KNEE ARHTROSCOPY WITH PARTIAL MEDIAL MENISCECTOMY AND DEBRIDEMENT. [id number]? [id number],S83.249A(Right) - Evelyn Felix MD Familial anesthetic complications: none Was Beta Markell taken within 24 hours: Yes Was Clonidine taken within 24 hours: N/A Last intake: Intake Last Liquid Date 05/19/22 Last Liquid Time 23:59 Last Solid Date 05/19/22 Last Solid Time 23:59 Social No alcohol and No tobacco Exam alert, oriented x 3, clear to auscultation bilaterally and regular rate & rhythm Airway Submandibular: within normal limits Cervical ROM: within normal limits Mallampati: Class II Dentition: chipped CV/HEM Hypertension GI Gastroesophageal Reflux Disease Metabolic chronic steroid Neuropsych Anxiety and Depression Anesthetic Plan ASA status: 3 Anesthesia: General Medications/Allergies Home Medications Medication Instructions Recorded Confirmed Last Taken Type buprenorphine 8 mg-naloxone 2 mg 8 film sublingual BID 09/16/19 05/20/22 05/19/22 History sublingual film (Suboxone) naloxone 4 mg/actuation nasal 4 mg intranasal DIRECTED 09/16/19 05/19/22 Unknown History spray (Narcan) bupropion HCl 150 mg 24 hr tablet, 300 mg PO QAM 10/27/20 05/20/22 05/18/22 History extended release (Wellbutrin XL) [place] J #1 ea 12/16/21 05/04/22 Unknown Rx etanercept 50 mg/mL (1 mL) 50 mg SUBCUT .Q7days #4 mL 02/09/22 05/20/22 05/13/22 Rx subcutaneous pen injector (Enbrel SureClick) methotrexate sodium 2.5 mg tablet 7.5 mg PO .week Rheumatoid 02/09/22 05/20/22 05/13/22 Rx Arthritis #15 tabs pantoprazole 40 mg tablet,delayed 40 mg PO DAILY #90 tabs 02/09/22 05/20/22 05/19/22 Rx release sulfasalazine 500 mg tablet See Rx Instructions .Route 02/09/22 05/20/22 05/19/22 Rx .COMPLEX #60 tabs folic acid 1 mg tablet 1 mg PO DAILY #90 tabs 04/04/22 05/20/22 05/20/22 07:30 Rx prednisone 10 mg tablet 10 mg PO DAILY PRN for flares #30 04/11/22 05/20/22 05/20/22 07:30 Rx tabs atenolol 50 mg tablet 50 mg PO DAILY 05/19/22 05/20/22 05/20/22 07:30 History hydrocodone 5 mg-acetaminophen 325 1 tab PO Q4H PRN pain 7 days #30 05/20/22 Unknown Rx mg tablet tabs Allergies Allergy/AdvReac Type Severity Reaction Status Date / Time celecoxib [From Celebrex] Allergy Mild felt hot Verified 05/19/22 12:32 all over Current Medications Generic Name Dose Route Start Last Admin Trade Name Freq PRN Reason Stop Dose Admin Fentanyl 50 mcg 05/20/22 12:56 05/20/22 13:30 Fentanyl 50 Mcg/Ml Inj 2ml IVP 05/21/22 12:56 50 mcg Q5M PRN Administration Pain level 1-6 PACU Phase I Sodium Chloride 1,000 mls @ 30 mls/hr 05/20/22 10:30 05/20/22 10:56 Sodium Chloride 0.9% IV 05/21/22 10:29 30 mls/hr .Q24H KERRY Administration PFSH Anesthesia Medical History (Updated 05/20/22 @ 13:40 by Evelyn Felix MD) Cervical disc disorder with myelopathy of mid-cervical region Chronic neck pain High risk medication use 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 Felix). History of facial surgery History of lumbar fusion Hx of appendectomy Hx of cholecystectomy Family History Other Cancer Rheumatoid arthritis Denies family history of Diabetes Lupus Chronic kidney disease (CKD) Hypertension Social History Smoking and tobacco status: current some day smoker Alcohol intake: current Lives independently: Yes Household members: spouse Marital status: Current occupational status: disabled History of recent travel: No Data Anesthesia Cardiac Studies: No Data to Display
[2022-05-20] MEDS: HYDROcodone-acetaminophen 5-325 mg Tablet 1 TAB PO (14:00)
--- NOTE | 2022-05-20 15:06 | ANE.PACU2 ---
Inpatient post-anesthesia follow up: Airway intact: Yes Vital signs: Temperature 97.5 F Pulse Rate 75 Respiratory Rate 18 Blood Pressure 151/98 Pulse Oximetry 99 Oxygen Delivery Me thod Room Air Oxygen Flow Rate 10 Fraction of Inspir ed Oxygen Hydration adequate: Yes Nausea and vomiting: No Pain level: 3 Mental status: Baseline
== END 2022-05-20 14:37 | disposition home or self-care (01) ==
PROVIDERS: PCP Nurse Practitioner Family; Visit Provider Specialist
PROC: (CPT 29870; principal; 2022-05-20 12:15)
DX: S83.241A Other tear of medial meniscus, current injury, right knee, initial encounter (principal); S83.281A Other tear of lateral meniscus, current injury, right knee, initial encounter; X58.XXXA Exposure to other specified factors, initial encounter; M17.11 Unilateral primary osteoarthritis, right knee; M23.003 Cystic meniscus, unspecified medial meniscus, right knee; I10 Essential (primary) hypertension; K21.9 Gastro-esophageal reflux disease without esophagitis; Z79.52 Long term (current) use of systemic steroids; F41.9 Anxiety disorder, unspecified; F32.A Depression, unspecified; Z79.899 Other long term (current) drug therapy; F17.210 Nicotine dependence, cigarettes, uncomplicated
CPT/HCPCS: 29880; J0131; J0690; J1100; J1170; J2250; J2270; J2405; J2704; J2795; J3010; J3490; J7030

== ENCOUNTER → 2022-07-13 10:20 | Outpatient (BNVA) | payer BC, MEDICAID, SELFPAY | PROVIDERS: PCP Nurse Practitioner Family; Visit Provider Nurse Practitioner Family | DX: M17.11 Unilateral primary osteoarthritis, right knee (principal); M23.003 Cystic meniscus, unspecified medial meniscus, right knee; Z48.89 Encounter for other specified surgical aftercare | CPT/HCPCS: 73560; 73565 ==

== ENCOUNTER 2022-07-13 13:31 | Outpatient (CLI) | payer BC, MEDICAID, SELFPAY | END 2022-07-13 13:32 | disposition home or self-care (01) | LOC: SPT 13:32 | PROVIDERS: PCP Nurse Practitioner Family; Visit Provider Nurse Practitioner Family | DX: Z47.89 Encounter for other orthopedic aftercare (principal); M25.561 Pain in right knee | CPT/HCPCS: 97760; L1812 ==

== ENCOUNTER → 2022-10-04 14:48 | Outpatient (BNVA) | payer BC, MEDICAID, SELFPAY | PROVIDERS: PCP Nurse Practitioner Family; Visit Provider Internal Medicine Rheumatology | DX: M05.79 Rheumatoid arthritis with rheumatoid factor of multiple sites without organ or systems involvement (principal); Z71.89 Other specified counseling; R76.8 Other specified abnormal immunological findings in serum; Z79.899 Other long term (current) drug therapy | CPT/HCPCS: 36415; 80076; 82565; 85025; 86140 ==

== ENCOUNTER → 2022-11-22 14:58 | Outpatient (BNVA) | payer BC, MEDICAID, SELFPAY | PROVIDERS: PCP Nurse Practitioner Family; Visit Provider Orthopaedic Surgery | DX: M47.816 Spondylosis without myelopathy or radiculopathy, lumbar region (principal); Z98.1 Arthrodesis status | CPT/HCPCS: 72110 ==

== ENCOUNTER 2022-12-09 13:09 | Outpatient (CLI) | payer BC, MEDICAID, SELFPAY ==
--- NOTE | 2022-12-09 13:00 | MR_ITS ---
WS: [id number] MRI LUMBAR SPINE NONCONTRAST TECHNIQUE: Sagittal T1, T2 and STIR imaging. Axial T1 and T2 imaging. CLINICAL INFORMATION: low back pain, hx of lumbar fusion COMPARISON: MRI 2012 FINDINGS: Counting performed from the craniocervical junction. Pedicle screw fixation L4-L5 with interbody fusi on. L5 is sacralized. Postoperative changes are new since 2012. L1-L2: No significant disc bulging. Moderate facet arthropathy. Spinal canal and foramen are patent. L2-L3: Slight retrolisthesis. Small central disc protrusion with mild central canal stenosis. Slight impingement traversing L3 nerve roots bilaterally. Moderate facet arthropathy. Mild LEFT greater than RIGHT foraminal narrowing. L3-L4: Mild annular bulging. Slight impingement on the subarticular recess. RIGHT foraminal protrusio n impinges the exiting RIGHT L3 nerve root. LEFT foramen is patent. Moderate facet arthropathy. L4-L5: Pedicle screw fixation with interbody fusion. Laminectomy defects. Spinal canal and foramen ar e patent. L5-S1: L5 is sacralized. Visualized pelvic bony structures: Normal. Paravertebral soft tissues: Normal. MR/MR lumbar spine wo con* [id number] IMPRESSION: 1. Counting performed from the craniocervical junction. Pedicle screw fixation L4-L5 with interbody fusion. L5 is sacralized 2. Pedicle screw fixation L4-L5 with interbody fusion. Associated laminectomy defects. 3. Mild central canal stenosis L2-L3 with slight retrolisthesis and small cent ral protrusion. Impingement traversing L3 nerve roots bilaterally. 4. Disc bulging L3-L4 with impingement traversing RIGHT L4 nerve root in the s ubarticular recess. RIGHT foraminal protrusion impinges the exiting RIGHT L3 ne rve root. 5. Mild bilateral L2-L3 foraminal narrowing.
== END 2022-12-09 13:10 | disposition home or self-care (01) ==
LOC: RAD 13:10
PROVIDERS: PCP Nurse Practitioner Family; Visit Provider Orthopaedic Surgery
DX: M48.061 Spinal stenosis, lumbar region without neurogenic claudication (principal); Z98.1 Arthrodesis status; M43.16 Spondylolisthesis, lumbar region; M51.36 Other intervertebral disc degeneration, lumbar region
CPT/HCPCS: 72148

== ENCOUNTER → 2023-03-08 15:22 | Outpatient (BNVA) | payer BC, MEDICAID, SELFPAY | PROVIDERS: PCP Nurse Practitioner Family; Visit Provider Internal Medicine Rheumatology | DX: Z79.899 Other long term (current) drug therapy (principal); M05.79 Rheumatoid arthritis with rheumatoid factor of multiple sites without organ or systems involvement; Z71.89 Other specified counseling; R76.8 Other specified abnormal immunological findings in serum | CPT/HCPCS: 36415; 80076; 82565; 82977; 85025; 86140 ==

== ENCOUNTER → 2023-03-14 09:16 | Outpatient (BNVA) | payer BC, MEDICAID, SELFPAY | PROVIDERS: PCP Nurse Practitioner Family; Visit Provider Orthopaedic Surgery | DX: M48.061 Spinal stenosis, lumbar region without neurogenic claudication (principal); M47.816 Spondylosis without myelopathy or radiculopathy, lumbar region; M54.9 Dorsalgia, unspecified; M48.062 Spinal stenosis, lumbar region with neurogenic claudication | CPT/HCPCS: 36415; 80053; 81003; 85025 ==

== ENCOUNTER → 2023-03-22 10:41 | Outpatient (BNVA) | payer BC, MEDICAID, SELFPAY | PROVIDERS: PCP Nurse Practitioner Family; Visit Provider Specialist | DX: M17.11 Unilateral primary osteoarthritis, right knee | CPT/HCPCS: 73560; 73565 ==

== ENCOUNTER 2023-04-03 14:18 | Inpatient (IN) | payer BC, MEDICAID, SELFPAY ==
[2023-03-31 11:07] VITALS: BMI 26.2
[2023-04-03] VITALS (26 sets, daily range): BP systolic 107–147; BP diastolic 76–91; PULSE 69–93; RESP 12–25; TEMP 36.4–37.7; O2SAT 95–100
--- NOTE | 2023-04-03 | XR_ITS ---
WS: [id number] INTRAOPERATIVE TECHNIQUE: 3 Spot fluoroscopic images for intraoperative purposes. FLUOROSCOPY TIME: 15 seconds CLINICAL INFORMATION: L2 to pelvis fusion COMPARISON: None. FINDINGS: Intraoperative changes pedicle screw fixation L2-S1 pedicle screw fixation with bilateral sacroiliac fixation screws. Hardware appears in good position. IMPRESSION: Images obtained for intraoperative purposes.
[2023-04-03] MEDS: sodium chloride 0.9% 1,000 ML 30 ML IV (08:24)
[2023-04-03] MEDS: methadone 10 mg Tablet PO (09:17)
--- NOTE | 2023-04-03 09:38 | W.PM.OPSUD ---
Surgery/Procedure H&P Update DATE OF PROCEDURE: April 03, 2023 DATE H&P PERFORMED: 03/16/23 H&P UPDATE INFORMATION: I have reviewed H&P completed within last 30 days, I have examined patient prior to procedure and No changes to prior documentation CHANGES TO PREVIOUS DOCUMENTATION: We will do L3 to the pelvis not L2 PREOP DIAGNOSIS: Lumbar stenosis, DDD lumbar PLANNED PROCEDURE: Operation Date: 04/03/23 09:35 Proposed Procedures p Spinal Fusion PSF(Not Applicable) - Jamar Barajas DO s Sacroiliac Joint Fusion SI Joint Fusion(Not Applicable) - DO [place] Lumbar Spine Decompression Lumbar Decompression(Not Applicable) - Jamar Barajas DO
[2023-04-03] MEDS: ceFAZolin 2,000 MG in sodium chloride 0.9% (plus) 50 ML 100 MG IV ×2 (10:15→17:09)
--- NOTE | 2023-04-03 10:53 | ANES.PREANE2 ---
Pre-Anesthetic Assessment Height/Weight: Height 1.91 m Weight 95.254 kg Temp Pulse Resp BP Pulse Ox O2 Del Method 97.6 F 69 18 140/83 99 Room Air 04/03/23 08:06 04/03/23 08:06 04/03/23 08:06 04/03/23 08:06 04/03/23 08:06 04/03/23 08:07 Preop Diagnosis: Lumbar stenosis, DDD lumbar Operation Date: 04/03/23 09:35 Proposed Procedures p Spinal Fusion PSF(Not Applicable) - Jamar Barajas DO s Sacroiliac Joint Fusion SI Joint Fusion(Not Applicable) - DO [place] Kendall Lumbar Spine Decompression Lumbar Decompression(Not Applicable) - Jamar Barajas DO Familial anesthetic complications: none Was Beta Markell taken within 24 hours: Yes Was Clonidine taken within 24 hours: N/A Last intake: Intake Last Liquid Date 04/02/23 Last Liquid Time 23:00 Last Solid Date 04/02/23 Last Solid Time 23:00 Social Tobacco and No alcohol Exam alert, oriented x 3, clear to auscultation bilaterally and regular rate & rhythm Airway Submandibular: within normal limits Cervical ROM: within normal limits Mallampati: Class II Dentition: false Pulmonary Chronic Obstructive Pulmonary Disease CV/HEM Hypertension GI Gastroesophageal Reflux Disease Metabolic Chronic steroids Musc/skel Lower Back Pain and Osteoarthritis/DJD Anesthetic Plan ASA status: 3 Anesthesia: General Other: A.line and transfusion discussed with patient. Medications/Allergies Home Medications Medication Instructions Recorded Confirmed Last Taken Type buprenorphine 8 mg-naloxone 2 mg 8 film sublingual BID 09/16/19 04/03/23 03/27/23 History sublingual film (Suboxone) naloxone 4 mg/actuation nasal 4 mg intranasal DIRECTED 09/16/19 04/03/23 Unknown History spray (Narcan) bupropion HCl 150 mg 24 hr tablet, 300 mg PO QAM 10/27/20 03/31/23 04/03/23 History extended release (Wellbutrin XL) [place] #1 ea 12/16/21 03/22/23 Unknown Rx atenolol 50 mg tablet 50 mg PO DAILY 05/19/22 03/31/23 04/03/23 History Hinge Knee Brace #1 ea 07/13/22 03/22/23 Unknown Rx pantoprazole 40 mg tablet,delayed 40 mg PO DAILY #90 tabs 12/28/22 03/31/23 04/03/23 Rx release tizanidine 4 mg tablet 4 mg PO BID PRN muscle spasticity 02/27/23 03/31/23 04/03/23 Rx #60 tabs topiramate 50 mg tablet 50 mg PO BID pain 30 days #60 tabs 02/27/23 03/31/23 04/03/23 Rx prednisone 5 mg tablet 5 mg PO DAILY #90 tabs 03/08/23 03/31/23 04/03/23 Rx sulfasalazine 500 mg tablet 1 g PO BID #120 tabs 03/08/23 03/31/23 03/27/23 Rx upadacitinib 15 mg tablet,extended 15 mg PO DAILY #30 tabs 03/08/23 03/31/23 04/03/23 Rx release 24 hr (Rinvoq) [id number] Bone Growth Stimulator #1 ea 03/15/23 03/22/23 Unknown Rx buspirone 7.5 mg tablet 7.5 mg PO BID 03/16/23 03/31/23 04/03/23 History lisinopril 20 mg tablet 20 mg PO DAILY 03/16/23 03/31/23 04/02/23 History prednisone 20 mg tablet See Rx Instructions .Route 04/03/23 Unknown Rx .COMPLEX #30 tabs Allergies Allergy/AdvReac Type Severity Reaction Status Date / Time celecoxib [From Celebrex] Allergy Mild felt hot Verified 04/03/23 08:12 all over Current Medications Generic Name Dose Route Start Last Admin Trade Name Freq PRN Reason Stop Dose Admin Sodium Chloride 1,000 mls @ 30 mls/hr 04/03/23 08:00 04/03/23 08:24 Sodium Chloride 0.9% IV 04/04/23 07:59 30 mls/hr .Q24H KERRY Administration PFS Anesthesia Medical History Cervical disc disorder with myelopathy of mid-cervical region Chronic neck pain High risk medication use 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 Felix). History of facial surgery History of lumbar fusion Hx of appendectomy Hx of cholecystectomy Family History Other Cancer Rheumatoid arthritis Denies family history of Diabetes Lupus Chronic kidney disease (CKD) Hypertension Social History Smoking and tobacco status: current some day smoker Alcohol intake: current Substance/Drug Use: never Lives independently: Yes Household members: spouse Marital status: Current occupational status: disabled Data Anesthesia Cardiac Studies: No Data to Display
[2023-04-03] MEDS: vancomycin 1,000 MG SDV 1000 MG XX (11:17)
[2023-04-03] MEDS: heparin, porcine 1,000 unit/mL INJ 10 mL 10000 UNIT XX (11:20)
[2023-04-03] MEDS: lidocaine-epi 1% 20 mL INJ INJECTION (11:23)
--- NOTE | 2023-04-03 14:03 | P.OP_ITS ---
Operative Report Date of procedure: April 03, 2023 Pre-op diagnosis: Lumbar stenosis with neurogenic claudication Post-op diagnosis: same Procedure done: 1. L3 to pelvis posterior spine fusion 2. L3-S1 posterior instrumentation 3. Lumbopelvic fixation 4. Open right sacral iliac fusion 5. Open Left sacral iliac fusion 6. L3/4 laminectomy with partial facetectomy 7. L4/5 laminectomy with partial facetectomy 8. Bone marrow aspirate right iliac crest 9. use of computer navigation / stereotactic for spine 10. Removal of deep hardware from spine Surgeon: Jamar Barajas DO Home Appliance Washing Machine Mechanic: Serafin John Home Appliance Washing Machine Mechanic: The imaging assistant, Serafin John, PAC was needed for his expertise under the microscope. He was important and necessary throughout the procedure to complete in a safe and timely manner. He assisted with patient positioning prepping and draping tissue retraction suctioning of the operative field protection of the dural sac and tissue closure Estimated blood loss (mL): 500 Procedure: 1. L3 to pelvis posterior spine fusion 2. L3-S1 posterior instrumentation 3. Lumbopelvic fixation 4. Open right sacral iliac fusion 5. Open Left sacral iliac fusion 6. L3/4 laminectomy with partial facetectomy 7. L4/5 laminectomy with partial facetectomy 8. Bone marrow aspirate right iliac crest 9. use of computer navigation / stereotactic for spine 10. Removal of deep hardware from spine Patient is brought to the operative suite.? After undergoing anesthesia, the patient had neuro monitoring attached.? Patient was then placed in the prone position on the Russell table.? All areas of impingement were well-padded.? Patient was then prepped and draped in the normal sterile fashion.? Skin incision was then made L3 to sacrum.? Subperiosteal dissection was made out to the transverse processes of L3 and L4 and L5 and sacral ala bilaterally. Previous hardware at L5-S1 was identified. The caps were removed the cross-link was removed and then the pedicle screws were removed but with a pedicle feeler a nd then replaced with 6 5 screws from [place]. Next attention was brought to obtain the bone marrow aspirate.? This was done by using the regenerative bone marrow aspiration kit.? 20 cc of bone marrow aspirate were taken from the right iliac crest.? This was later used with the osteo amp bone graft. Next tension was brought to placing the fiducial for the computer navigation.? 2 pins were placed into the right iliac crest.? The fiducial was attached.? The C- arm was brought in and information from serum was then linked to the computer used for placing the screws.? The case. Next attention was brought to placing the pedicle screws.? This was done by using the gearshift probe.? The probe was used to identify the pedicle.? Then the pedicle feeler was used followed by placement of screw.? This was done at L3 bilaterally, L4 bilaterally, L5 bilaterally and S1 bilaterally. Next tension was brought to placing the iliac screws.? This was done using the sacral ala iliac technique.? The gearshift probe linked to computer navigation was then placed through the sacral ala into the sacroiliac joint into the iliac crest.? Next the pedicle feeler was used followed by the computer navigated tap .? And then the screw was passed a 90 mm screw was placed on the right side and a 80 mm screw was placed on the left side.? Both the screws were 9.5 mm in diameter. Next tension was brought to performing the open and sacral iliac fusion.? This was done by again using the gearshift probe linked to computer navigation.? Followed by pedicle feeler followed by placing a wire and then the drill drilled over the wire and then bone graft was packed into the sacroiliac joint and into the drill hole.? And the sacroiliac screw was then placed.? This technique was done on both the right and left side. Next tension was brought to performing the laminectomies. This was done at the L3-4 level. High-speed bur was used to take down the facet and lamina. Then the curved curette and Kerrison rongeur was used to remove the remaining bone. This was done out to the foramens the L3 nerve was traced out the L3-4 foramen and then the L4 nerve was traced around the L4 pedicles bilaterally. Next there was brought to the L4-5 level high-speed bur was brought down to the level of the scar tissue at the previous fusion. The high-speed bur was used to take down the lamina and medial aspect of facet joints. Then Kerrison rongeur was incurred curettes were used to remove the remaining bone and ligamentum flavum. The L4 nerves were traced and found to be decompressed out the L4-5 foramen and the L5 nerves were found to be decompressed around the L5 pedicles. Next attention was brought to attaching the rods.? Rods were attached from L3 down to S1 and then to the iliac crest completing the lumbopelvic fixation.? The caps were then tightened.? This was done bilaterally.? Next the wound was irrigated.? And then the transverse processes of L3, L4, L5 and sacral ala all bilaterally were decorticated using high-speed bur.? And the bone graft was packed into the lateral gutters.? Next the deep drain was placed and black powder was placed and wound was closed in layered fashion with 0 Vicryl 2-0 Vicryl and Monocryl suture.? Sterile dressings were applied patient was transferred to the PACU in stable condition.
--- NOTE | 2023-04-03 14:34 | PC.PT ---
PT eval attempted but patient is still in recovery and not awake. Pt will go to the floor later. Will see first thing in the morning on 04-04-23 per nursing in the recovery unit.
[2023-04-03] MEDS: fentaNYL 50 mcg/mL INJ 2mL IVP ×2 (14:37→14:43)
[2023-04-03] MEDS: HYDROmorphone 1 mg/mL INJ 1 mL 0.5 MG IVP ×2 (14:48→14:56)
--- NOTE | 2023-04-03 15:22 | ANE.PACU2 ---
Inpatient post-anesthesia follow up: Airway intact: Yes Vital signs: Temperature 99.8 F Pulse Rate 75 Respiratory Rate 17 Blood Pressure 131/89 Pulse Oximetry 96 Oxygen Delivery Me thod Room Air Oxygen Flow Rate 7 Fraction of Inspir ed Oxygen Hydration adequate: Yes Nausea and vomiting: No Pain level: 3 Mental status: Baseline
[2023-04-03] MEDS: BuSPIRONE 10 mg Tablet 7.5 MG PO (17:08)
[2023-04-03] MEDS: morphine 4 mg/mL SDV 1 mL 2 MG IVP ×3 (17:08→22:53)
[2023-04-03] MEDS: topiramate 25 mg Tablet 50 MG PO (17:09)
[2023-04-03] MEDS: tizanidine 4 mg Tablet PO (17:09)
[2023-04-03] MEDS: docusate sodium 100 mg Capsule PO (17:10)
[2023-04-03] MEDS: sulfaSALAzine 500 mg Tablet 1000 MG PO (17:15)
[2023-04-03] MEDS: lactated ringers 1,000 ML 90 ML IV (17:28)
[2023-04-03] MEDS: HYDROcodone-acetaminophen 5-325 mg Tablet PO (19:52)
[2023-04-03] MEDS: ketorolac 30 mg/mL INJ IVP (22:27)
[2023-04-04] VITALS: BP 133/74; PULSE 90; RESP 18; TEMP 37.2; O2SAT 97
[2023-04-04] MEDS: ceFAZolin 2,000 MG in sodium chloride 0.9% (plus) 50 ML 100 MG IV ×2 (01:22→10:24)
[2023-04-04] MEDS: lactated ringers 1,000 ML 90 ML IV (01:23)
[2023-04-04] MEDS: morphine 4 mg/mL SDV 1 mL 2 MG IVP (01:24)
[2023-04-04] MEDS: ketorolac 30 mg/mL INJ IVP (04:31)
[2023-04-04] MEDS: HYDROcodone-acetaminophen 5-325 mg Tablet PO ×2 (05:52→10:22)
[2023-04-04] MEDS: buPROPion XL (24 HR) 150 mg Tablet 300 MG PO (05:52)
[2023-04-04 06:00] VITALS: BP 133/83; PULSE 83; RESP 18; TEMP 37.1; O2SAT 97
--- NOTE | 2023-04-04 07:25 | PM.PN ---
Subjective Subjective: POD 1 Patient resting comfortably. Reports mild back pain reports numbness in his legs. Denies chest pain, shortness of breath, headaches. Vitals/I&O/Wt Last Vital Signs Temp 98.8 F 04/04/23 06:00 Pulse 83 04/04/23 06:00 Resp 18 04/04/23 06:00 BP 133/83 04/04/23 06:00 Pulse Ox 97 04/04/23 06:00 O2 Del Method Room Air 04/04/23 06:00 O2 Flow Rate 7 04/03/23 14:15 04/03/23 04/04/23 04/04/23 22:59 06:59 14:59 Intake Total 50 / 4100 762.5 / 4862.5 Output Total 1100 / 2300 310 / 2610 Balance -1050 / 1800 452.5 / 2252.5 Physical Exam Narrative: Patient presents alert and oriented x3 with a good general appearance normal mood and affect. Normal coordination normal stability. Mild tenderness around the incisional site with the incision appear to be clean and dry with Hemovac drain intact. No signs of erythema or drainage. No signs of infection. Patient denies any fevers or chills. 5/5 motor strength both lower extremities with negative straight leg raise bilaterally. Calves are supple no medial thigh tenderness. Pulses are 2+ at the dorsalis pedis and posterior tibial region. Good capillary refill throughout normal sensation light touch both lower extremities. Urinary Catheter Management: Meeks: Cath Placed During This Visit: yes Reason for Continuing Indwelling Catheter: Required Immobilization for Trauma or Surgery or Anesthesia Urinary Catheter Date of Insertion: 04/03/23 Urinary Catheter Time of Insertion: 10:25 A&P Assessment and plan (1) Status post lumbar spinal fusion: Plan We will discontinue Meeks catheter. Discontinue Hemovac drain. Physical therapy to mobilize. Continue incentive spirometry for pulmonary toilet at home. We will work to discharge him home later this morning. He will follow-up in the office in 1 week's time for wound check. No bending lifting or twisting activities. Continue walking program. Hydrocodone prescription sent to hospital pharmacy Attestations Medical Necessity Statement*: Discharge home later this morning. Coding Level of Care Code Acute Code for Chg Fwd Diagnoses Status post lumbar spinal fusion Z98.1
[2023-04-04 07:31] VITALS: PULSE 82; RESP 16; O2SAT 97
[2023-04-04 08:00] VITALS: BP 136/87; PULSE 76; RESP 17; TEMP 36.8; O2SAT 98
--- NOTE | 2023-04-04 10:01 | PC.CHAP ---
Pastoral Care Encounter/Spiritual Assessment Type of Contact [] Declined shoe maker visit [] Patient/Family/Request visit [] Outpatient visit [] Follow-up visit [] Physician referral [] Code/Alert [] Routine visit [] Staff referral [] Actively dying [] Patient sleeping [] Family support [] [] Out of room [] Palliative care [] [x] Receiving care in room [] Pre-surgical visit [] Trauma [] Long length of stay [] ICU visit [] Other: Relational/Emotional Strength [] Patient feels connected with others/family/visitors/staff [] Distress [] Loneliness/isolation [] Abandonment Spirituality of Patient [] Person of Tonya [] Attends Sabianism of their Tonya [] Believes in Prayer [] Reads Bible or Zoroastrian materials [] There are Spiritual issues to be addressed Forensic Toxicologist Interventions [] Prayer [] Active listening [] Non-anxious presence [] Spiritual/emotional support [] Crisis/trauma care [] Spiritual counseling [] Bereavement support [] Provided bereavement packet [] Provided Bible/devotional materials [] Provided toy/stuffed animal, coloring book to patient or family member [] Provided Communion [] Anointing/[place] [] Salvation [] Completed spiritual assessment [] Other: Impact on Illness or Injury [] Angry [] Fearful [] Anxious [] Often cries [] Exhaustion [] Unable to work [] Unable to attend yarsani [] Unable to walk/stand [] Unable to read [] Unable to drive [] Unable to eat/drink [] Unable to sleep [] Unable to be with family [] Patient intubated [] Other: Summary Time spent with patient
[2023-04-04] MEDS: sulfaSALAzine 500 mg Tablet 1000 MG PO (10:21)
[2023-04-04] MEDS: topiramate 25 mg Tablet 50 MG PO (10:22)
[2023-04-04] MEDS: BuSPIRONE 10 mg Tablet 7.5 MG PO (10:22)
[2023-04-04] MEDS: atenolol 50 mg Tablet PO (10:23)
[2023-04-04] MEDS: lisinopril 20 mg Tablet PO (10:23)
[2023-04-04] MEDS: pantoprazole DR 40 mg Tablet PO (10:23)
[2023-04-04] MEDS: predniSONE 5 mg Tablet PO (10:23)
--- NOTE | 2023-04-06 09:19 | PM.DCS ---
Discharge Providers Date of Admission: 04/03/23 14:18 Date of Discharge: April 04, 2023 Attending Provider at Admission: Jamar Barajas DO Attending Provider at Discharge: Jamar Barajas DO Primary Care Provider: Evelyn Bruno Diagnoses at Discharge Discharge Diagnosis (1) Status post lumbar spinal fusion: Status: Acute Reason for Visit Reason for Visit: M47.816 M48.061 Physical Exam Urinary Catheter Management: Meeks: Cath Placed During This Visit: yes Reason for Continuing Indwelling Catheter: Required Immobilization for Trauma or Surgery or Anesthesia Urinary Catheter Date of Insertion: 04/03/23 Urinary Catheter Time of Insertion: 10:25 Discharge Data Studies Completed and Pending Completed Studies During Hospitalization Category Date Time Status XR lumbar spine 2-3V* [id number] Routine Exams 04/03/23 Completed Laboratory Results Blood Type O Positive 04/03/23 10:12 Rho(D) Type Positive 04/03/23 10:12 Antibody Screen Negative 04/03/23 10:12 Vitals Last Vital Signs Temp 98.3 F 04/04/23 08:00 Pulse 76 04/04/23 08:00 Resp 17 04/04/23 08:00 BP 136/87 04/04/23 08:00 Pulse Ox 98 04/04/23 08:00 O2 Del Method Room Air 04/04/23 07:31 O2 Flow Rate 7 04/03/23 14:15 Discharge Plan Discharge Patient Disposition: Home Condition: Stable Prescriptions: Continued (DME) Hinge Knee Brace See Rx Instructions .Route .MEDSUPPLY Qty: 1 0RF Rx Instructions: As directed topiramate 50 mg tablet 50 mg PO BID 30 Days Qty: 60 3RF tizanidine 4 mg tablet 4 mg PO BID PRN (Reason: muscle spasticity) Qty: 60 3RF lisinopril 20 mg tablet 20 mg PO DAILY buspirone 7.5 mg tablet 7.5 mg PO BID (DME) Kenaitze J See Rx Instructions .Route .MEDSUPPLY Qty: 1 0RF Rx Instructions: As directed pantoprazole 40 mg tablet,delayed release (DR/EC) 40 mg PO DAILY Qty: 90 1RF prednisone 5 mg tablet 5 mg PO DAILY Qty: 90 1RF sulfasalazine 500 mg tablet 1 g PO BID Qty: 120 3RF Rinvoq 15 mg tablet extended release 24 hr 15 mg PO DAILY Qty: 30 3RF (DME) [id number] Bone Growth Stimulator See Rx Instructions .Route .MEDSUPPLY Qty: 1 0RF Rx Instructions: As directed prednisone 20 mg tablet See Rx Instructions .ROUTE .COMPLEX Qty: 30 1RF Dose Instruction: TAKE 1 TO 2 TABLETS BY MOUTH DAILY FOR 3-7 DAYS NEEDED FOR ARTHRITIS FLARE Rx Instructions: TAKE 1 TO 2 TABLETS BY MOUTH DAILY FOR 3-7 DAYS NEEDED FOR ARTHRITIS FLARE buprenorphine-naloxone [Suboxone] 8-2 mg film 8 film sublingual BID naloxone [Narcan] 4 mg/actuation spray,non-aerosol 4 mg INTRANASAL DIRECTED atenolol 50 mg Tablet 50 mg PO DAILY No Action bupropion HCl 300 mg tablet extended release 24 hr 300 mg PO DAILY loperamide 2 mg capsule See Rx Instructions .ROUTE .COMPLEX Rx Instructions: 2 mg orally at 1st diarrhea, may repeat 1 capsule after each loose stool. Max 6 tablets per day ondansetron HCl 8 mg tablet 8 mg PO Q8H PRN (Reason: Nausea) Discharge Orders: Discharge Order (Routine); Ordered 04/04/23 Ordered By: Serafin John Referrals: Jamar Barajas DO [Physician] - 04/13/23 2:45 pm () Evelyn Bruno FNP-C [Primary Care Provider] - 04/13/23 9:45 am Discharge Diet: Advance as tolerated Discharge Activity: Limit activity as instructed Patient Instructions: Hydrocodone/Acetaminophen (By mouth), Lumbar Spinal Stenosis (GEN), Opioid Safety Activity Restrictions/Additional Instructions: Thank you for choosing [facility] for your care! The following is a list of instructions, from your provider, to follow upon your discharge to ensure you have the optimal recovery from your recent injury or surgery. Follow-up care is a guzmán part of your treatment and safety. Be sure to make and go to all appointments and call your doctor if you are having problems. If you do not already have a follow-up appointment made, call Dr. Barajas's] office in the next 1-3 days to make follow up appointment for [1-2] weeks at [phone]. It is also a good idea to know your test results and keep a list of the medicines you take. Medications will be prescribed for you at your provider's discretion. These medications are to be used as instructed; if they are taken more often that prescribed they will not be refilled early and in most cases will not be refilled at all. > When a refill is needed, you should contact rosario centeno 2-3 business days before your prescription runs out. Medications will NOT be refilled by friction saw operator providers after hours! > Many pain medications contain Tylenol (Acetaminophen). Do not consume more than 4,000 mg of Tylenol per day in total with any combination of medications. > Pain medications can cause constipation. Please use an over the counter stool softener as directed, while taking pain medications. Consult your local pharmacist with questions or recommendations on stool softeners. If constipation persists, contact our office or your primary care provider. > While under our care, you are not to receive pain medications or other controlled substances from any other provider unless our office is notified and approves. Any attempts to do so will result in refusal to prescribe any further pain medications and possible dismissal from our practice. ? Walking is essential for the healing process after surgery. We would like you to slowly advance your walking. This should be done on relatively flat clear ground (inside or out) or can be done on a treadmill. Remember this goal does not have to happen all at once, slowly increase your distance and duration. This can be broken into more more than one walk per day as tolerated. Patients who walk as directed after surgery rarely require Physical Therapy. In the unlikely event this issue arises your provider will direct hospital staff to make the appropriate arrangements. ? No lifting over 5 pounds {a gallon of milk) or bending/twisting until further notice. Each of these activities places an unnecessary amount of stress onto the body and can impede the delicate healing process. > Instead of bending at the waist, keep your back straight and bend at the knees. > Instead of twisting your torso, keep your back straight and turn your entire body with your feet. ? You may sleep in any position which makes you comfortable. Many patients find comfort sleeping in a reclining chair. It is not abnormal to have difficulty sleeping for the first several weeks following your surgery. We recommend trying Benadry! or Tylenol PM as directed to help with your sleeping difficulties. Both medications are over the counter and available without prescription. ? NO SMOKING!!! Smoking dramatically increases the probability of developing postoperative wound infections. ? Common complaints after lumbar and/or thoracic spine surgery include, but are not limited to: numbness and/or tingling in the legs, pain around the incision and surrounding tissues, muscle spasms, or stiffness of the middle to low back. Contact our office if these symptoms persist or if an acute change occurs. ? No driving for the first 3-5days, and not while taking narcotics until seen at your follow-up appointment and cleared. There are no restrictions for riding on short trips, however if you take a longer trip, arrangements should be made to make regular stops to get out of the vehicle and stretch . ? Swelling is an unfortunate event that will take place with any surgery and is the primary source of your postoperative discomfort. While walking and regular approved activities helps control inflammation, there are additional steps you can take to minimize swelling. > Place ice over the surgical site and surrounding tissue for twenty minutes, followed by applying a low/medium heat (heating pad) for an additional twenty minutes every 1-2 hours as needed for painrelief. > You may use of over the counter anti-inflammatory medications (Ibuprofen, Motrin, Aleve, Advil, etc) as directed on the package label. These types of medicines will significantly reduce the amount of discomfort you experience after surgery from swelling. It should be noted that if you have and allergy to any of these medications, or a history of ulcers or kidney disease you should consult you primary care provider prior to starting these medications. Please hold your suboxone during the time of taking your hydrocodone. Discharge Attestations Time Spent in Discharge Care*: less than 30 min Quality Metrics Clinical Quality Measures [ No reported AMI, CVA or VTE this stay] Coding Level of Care Code Acute Code for Chg Fwd Diagnoses Status post lumbar spinal fusion Z98.1
== END 2023-04-04 11:32 | disposition home or self-care (01) | DRG 455 ==
LOC: MEDSURG 14:18
PROVIDERS: Admitting Provider Orthopaedic Surgery; PCP Nurse Practitioner Family; Visit Provider Orthopaedic Surgery
PROC: 0SG107J Fusion of 2 or more Lumbar Vertebral Joints with Autologous Tissue Substitute, Posterior Approach, Anterior Column, Open Approach (ICD-10-PCS; principal; 2023-04-03 09:25)
PROC: 0SG107J Fusion of 2 or more Lumbar Vertebral Joints with Autologous Tissue Substitute, Posterior Approach, Anterior Column, Open Approach (ICD-10-PCS; CPT 27280; 2023-04-03 09:25)
PROC: 0SG107J Fusion of 2 or more Lumbar Vertebral Joints with Autologous Tissue Substitute, Posterior Approach, Anterior Column, Open Approach (ICD-10-PCS; CPT 63005; 2023-04-03 09:25)
PROC: 0SG107J Fusion of 2 or more Lumbar Vertebral Joints with Autologous Tissue Substitute, Posterior Approach, Anterior Column, Open Approach (ICD-10-PCS; 2023-04-03 09:25)
DX: M48.062 Spinal stenosis, lumbar region with neurogenic claudication (principal); M05.89 Other rheumatoid arthritis with rheumatoid factor of multiple sites; F17.200 Nicotine dependence, unspecified, uncomplicated
CPT/HCPCS: 36415; 51702; 72100; 76000; 86850; 86900; 97110; 97161; C1713; J0330; J0690; J1100; J1170; J1644; J1885; J2270; J2371; J2405; J2704; J3010; J3370; J3490; J7030; J7120; J7512; P9045